=== PATIENT | female | born 1980 | race Caucasian/White ===

== ENCOUNTER 2025-07-11 14:25 | Emergency (ER) | payer OTHER ==
[2025-07-11] MEDS ORDERED: Naloxone 0.4 MG/ML SDV IVPUSH PRN (15:51)
[2025-07-11 16:24] LABS: APPEARANCE,URINE CLEAR (Clear); GLUCOSE,URINE NEGATIVE (Negative); OCCULT BLOOD,URINE 2+ (Negative)
[2025-07-11 16:32] LABS: BUPRENORPHINE SCREEN,URINE NEGATIVE (CUTOFF=10); METHADONE SCREEN, URINE NEGATIVE (CUTOFF=200); METHAMPHETAMINES SCREEN, URINE NEGATIVE (CUTOFF=500); OXYCODONE SCREEN,URINE NEGATIVE (CUT0FF=100); THC SCREEN,URINE 20 NG/ML NEGATIVE (CUTOFF=50)
[2025-07-11 16:33] LABS: EPITHELIAL CELLS,URINE 0-5 /hpf (0-5)
[2025-07-11 16:35] LABS: AMPHETAMINES SCREEN, URINE NEGATIVE (CUTOFF=500)
== END 2025-07-11 18:20 | disposition home or self-care (01) ==
LOC: JD.ED 14:25
DX: M54.50 Low back pain, unspecified (principal); Z79.899 Other long term (current) drug therapy
CPT/HCPCS: 74176; 80306; 81001; 81025; 96372; 99284; J1171